=== PATIENT | female | born 1990 | race Caucasian/White ===

== ENCOUNTER 2018-04-14 22:02 | Emergency (ER) | payer SELFPAY ==
[~2018-04-14 22:02] MED LIST: Iopamidol 370 76% 100 ML VIAL ONE
[2018-04-14 23:14] LABS: Band 1 % (5-11); Lymphocytes 32 % (21-51); MDiff Complete? YES; Mean Corpuscular HGB CONC 33.5 g/dL (32.0-36.0); Mean Corpuscular Hemoglobin 29.8 pg (27.0-31.0); Mean Corpuscular Volume 88.9 fL (78.0-98.0); Mean Platelet Volume 7.1 fL (7.4-10.4); Monocytes 6 % (0-10); Neutrophil 56 % (42-75); PLT Morphology Comment Appears Adequate; Platelet Count 354 thou/uL (130-400); RBC Distribution Width 11.8 % (11.5-14.5); RBC Morphology Normal; Reactive Lymphocytes 5 % (0-10); Red Blood Cell (RBC) Count 4.36 mill/uL (4.20-5.40)
[2018-04-14 23:17] LABS: ALT (SGPT) 19 U/L (8-55); AST (SGOT) 17 U/L (5-34); Alkaline Phosphatase 73 U/L (40-150); Anion Gap 15 mmol/L (10-20); BUN (Urea Nitrogen) 15 mg/dL (7.0-18.7); Bilirubin, Total 0.4 mg/dL (0.2-1.2); Calc. Creatinine Clearance 0 mL/min (70-130); Calcium 8.9 mg/dL (7.8-10.44); Carbon Dioxide 25 mmol/L (22-29); Chloride 105 mmol/L (98-107); Estimated GFR-MDRD 85; Globulin 2.5 g/dL (2.4-3.5); Glucose 81 mg/dL (70-105); Magnesium 2.3 mg/dL (1.6-2.6); Potassium 4.5 mmol/L (3.5-5.1); Pregnancy Test - Urine (BHCG) Negative (Negative); Protein, Total 6.5 g/dL (6.0-8.3); Sodium 140 mmol/L (136-145)
[2018-04-14 23:18] LABS: CKMB 0.5 ng/mL (0-6.6); Pregu Control Background? CLEAR/WHITE (CLR/WHITE); Pregu Control Bar Appear? YES (CONTROL BAR); Specific Gravity 1.005 (1.002-1.036); Troponin I Less than 0.010 ng/mL (< 0.028)
--- NOTE | 2018-04-14 23:31 | RAD ---
CHEST TWO VIEWS: HISTORY: Chest pain. FINDINGS: Heart size and mediastinum are within normal limits. Lungs are clear of infiltrates. No significant bony findings. IMPRESSION: No active intrathoracic disease. POS: [facility]
[2018-04-14] MEDS ORDERED: HYDROcodone/Acetaminophen 5/325 mg Tablet ONE (23:35)
--- NOTE | 2018-04-14 23:56 | CT ---
CT ANGIO CHEST PERFORMED WITH INTRAVENOUS CONTRAST ENHANCEMENT WITH 3D RECONSTRUCTIONS: HISTORY: Chest pain. Elevated D-dimer. FINDINGS: The lungs are clear of infiltrates. No signs of failure. No pleural effusions. No pulmonary nodule s. No significant mediastinal or hilar adenopathy. No significant axillary adenopathy. The thoracic aorta is normal in caliber. Exam quality is limited by body habitus and a less than optimal bolus. I see no CT evidence for pulm onary embolus. Peripheral emboli cannot be excluded. The visualized liver parenchyma shows no focal findings. IMPRESSION: No CT evidence for pulmonary embolus. POS: [facility]
== END 2018-04-15 00:08 | disposition home or self-care (01) ==
LOC: MADERS 22:02
DX: R07.89 Other chest pain (principal); E05.90 Thyrotoxicosis, unspecified without thyrotoxic crisis or storm
CPT/HCPCS: 71046; 71275; 80053; 81025; 82553; 83735; 84443; 84484; 85025; 85379; 93005